=== PATIENT | male | born 1975 | race Caucasian/White ===

== ENCOUNTER 2022-12-14 12:24 | Day surgery (SDC) | payer BC ==
[~2022-12-14] VITALS: Ht 190.5 cm; Wt 117.0 kg
[~2022-12-14 12:24] MED LIST: NS 1,000 ML IV ONE; PANT20TA6 PO
[2022-12-14] MEDS ORDERED: fentaNYL 100 MCG/2 ML INJECTION As Ordered ONE (14:39)
[2022-12-14 15:13] VITALS: TEMP 97.6
[2022-12-14 15:35] VITALS: BP 110/59; O2SAT 96
== END 2022-12-14 15:40 | disposition home or self-care (01) ==
LOC: M OPP 12:24
PROVIDERS: ATTEND Internal Medicine Gastroenterology
DX: K22.89 Other specified disease of esophagus (principal); K31.89 Other diseases of stomach and duodenum; R12 Heartburn; Z79.899 Other long term (current) drug therapy
CPT/HCPCS: 43239; 88305; J3010